=== PATIENT | female | born 1995 | race Caucasian/White ===

== ENCOUNTER 2024-08-21 18:27 | Emergency (ER) | payer OTHER, SELFPAY ==
--- NOTE | ~2024-08-21 | XR_ITS ---
XR knee RT 3V Ordering provider: Ben Staples PA-C History: . R knee pain s/p fall, PAIN ANTERIOR . Comparison: None. FINDINGS: BONES: No acute fracture or dislocation. JOINT SPACES: Normal. SOFT TISSUES: Normal. IMPRESSION: No acute osseous abnormality right knee. Reviewed, dictated and finalized at location [facility]
[2024-08-21 18:30] VITALS: BP 116/72; PULSE 105; RESP 20; TEMP 36.2; O2SAT 100
--- NOTE | 2024-08-21 18:33 | ED_ITS ---
HPI - Extremity Injury (Lower) General Chief Complaint: Extremity Injury, Lower Stated Complaint: R KNEE PAIN S/P FALL Time Seen by Provider: 08/21/24 18:31 Source: patient Mode of arrival: ambulatory Limitations: no limitations History of Present Illness HPI Narrative: This is a 29-year-old female who presents to the ED for chief complaint of right knee injury that occurred the just prior to arrival. Patient reports that she was walking up the steps when she slipped and her right patella went directly into the stair. Reports pain and swelling to the right knee but no further site of injury. Reports difficulty with ambulation due to pain. Related Data Allergies Allergy/AdvReac Type Severity Reaction Status Date / Time epinephrine Allergy Difficulty Verified 08/21/24 18:29 Breathing Review of Systems Review of Systems: All systems as dictated in HPI Exam Narrative: GENERAL: Well-appearing, well-nourished, and in no acute distress. HEAD: Normocephalic, atraumatic. EYES: PERRLA and EOMI. ENT: Nares clear, no rhinorrhea or epistaxis. Mucous membranes moist. Oropharynx without tonsillar hypertrophy exudate or other lesions. NECK: Supple. No adenopathy or masses. CHEST: No respiratory distress. Clear to auscultation. No wheezes rales or rhonchi HEART: Regular rate and rhythm. No murmur heard. Normal peripheral pulses. ABDOMEN: Soft, nontender, nondistended, normal active bowel sounds. MSK: RLE: Tenderness throughout the right knee joint. Moderate swelling throughout the knee joint. No gross deformity. Neurovascular intact distally. LLE: Benign SKIN: Warm, dry, no rash. NEURO: Alert and oriented x4. No focal deficits. PSYCH: Normal mood and affect. Course Vital Signs Vital signs: Vital Signs Temperature 97.2 F L 08/21/24 18:30 Pulse Rate 105 H 08/21/24 18:30 Respiratory Rate 20 08/21/24 18:30 Blood Pressure 116/72 08/21/24 18:30 Pulse Oximetry 100 08/21/24 18:30 Oxygen Delivery Room Air 08/21/24 18:30 Temperature 97.2 F L 08/21/24 18:30 Pulse Rate 105 H 08/21/24 18:30 Respiratory Rate 20 08/21/24 18:30 Blood Pressure 116/72 08/21/24 18:30 Pulse Oximetry 100 11/28/24 18:30 Oxygen Delivery Room Air 08/21/24 18:30 MDM - Extremity Injury (Lower) MDM Narrative Medical decision making narrative: This is a 29-year-old female who presents to the ED for chief complaint of right knee pain after injury today. Vitals are normal. Exam shows moderate effusion tenderness throughout the knee joint. No deformities. Neurovascular intact. X-ray right knee: IMPRESSION: No acute osseous abnormality right knee. Presentation consistent with soft tissue injury of the knee. She was given [place] here. Patient will be placed in knee immobilizer and given crutches. Patient will be discharged in stable condition. Supportive measures discussed and return precautions given. Patient is understanding and agreeable with plan for discharge with PCP follow-up. Discharge Plan Discharge Clinical Impression: Injury of knee, right Patient Disposition: Home, Self-Care Condition: Stable Instructions: Antibiotic Form Additional Instructions: Your exam and imaging today do not show fracture. There may be a sprain of the knee. Please use knee immobilizer and crutches until otherwise directed by PCP. Use regular Tylenol and ibuprofen every 6 hours as needed for pain control. If you have any new or worsening symptoms please return to the ER for further evaluation. Follow-up/Referrals: PHYSICIAN NOT ON STAFF,NONSTAFF [Primary Care Provider] - Time of Disposition: 19:11
[2024-08-21] MEDS: HYDROcodone/acetaminophen (*CRX) 5-325 MG TABLET 1 TAB PO (19:11)
== END 2024-08-21 19:29 | disposition home or self-care (01) ==
PROVIDERS: Emergency Provider Physician Assistant
DX: S89.91XA Unspecified injury of right lower leg, initial encounter (principal); W10.9XXA Fall (on) (from) unspecified stairs and steps, initial encounter
CPT/HCPCS: 73562; 99283; A9270